=== PATIENT | female | born 1950 | race Caucasian/White ===

== ENCOUNTER 2021-05-23 05:39 | Day surgery (SDC) | payer MEDICARE, OTHER ==
[2021-05-16 14:31] LABS: BASOPHILS % (AUTO) 0.5 % (0-1); EOSINOPHILS # (AUTO) 0.1 X10'3 (0-0.9); EOSINOPHILS % (AUTO) 1.7 % (0-6); LYMPHOCYTES % (AUTO) 27.7 % (21-51); MEAN CORPUSCULAR HEMOGLOBIN 33.4 PG (27.0-31.0); MEAN CORPUSCULAR VOLUME 98.3 FL (78-98); MEAN PLATELET VOLUME 7.5 FL (7.4-10.4); MONOCYTES # (AUTO) 0.7 X10'3 (0-0.9); MONOCYTES % (AUTO) 10.1 % (2-12); NEUTROPHILS # (AUTO) 4.4 X10'3 (1.8-7.7); PRE OP HEMATOCRIT 41.8 % (35.0-45.0); PRE OP HEMOGLOBIN 14.2 g/dL (12.0-16.0); PRE OP PLATELET COUNT 299 X10'3 (140-440); RED BLOOD COUNT 4.25 X10'6 (4.20-5.60); RED CELL DISTRIBUTION WIDTH 12.8 % (11.5-14.5)
[2021-05-16 14:48] LABS: ALBUMIN 3.9 G/DL (3.4-5.0); ALKALINE PHOSPHATASE 109 IU/L (46-116); BLOOD UREA NITROGEN 20 MG/DL (7-18); CALCIUM 10.5 MG/DL (8.5-10.1); CHLORIDE 103 MMOL/L (99-107); CREATININE 0.87 MG/DL (0.40-0.90); PRE OP ALT 29 U/L (30-65); PRE OP ANION GAP 7 (8-16); PRE OP AST 18 U/L (10-37); PRE OP BILIRUB, TOTAL 0.5 MG/DL (0.0-1.0); PRE OP GLUCOSE 91 MG/DL (70-104); PRE OP POTASSIUM 4.5 MMOL/L (3.4-5.1); PRE OP SODIUM 141 MMOL/L (135-145); TOTAL CARBON DIOXIDE 31.1 MMOL/L (24-32); TOTAL PROTEIN 7.8 G/DL (6.4-8.2); eGFR 64 ML/MIN
[~2021-05-23] VITALS: Ht 160 cm; Wt 64.0 kg
[2021-05-23] VITALS (8 sets, daily range): BP systolic 109–130; BP diastolic 55–91
[~2021-05-23 05:39] MED LIST: BUPR300T53 PO; CALCIUM; FISH OIL; MULT-1085 PO; OMEP-50 PO; VITAMIN E; VORT20TA PO; ceFOXitin 2GM-NS 100mL ADDvant 100 ML IV ONE; famotidine 20mg tablet PO ONE; ringers solution, lacted 1,000 ML IV SCH
[2021-05-23] MEDS ORDERED: INDOCYANINE GREEN 25 MG/10 ML VIAL IV ONE (06:35)
[2021-05-23] MEDS ORDERED: BUPIVAcaine/PF 2.5mg/ml (0.25%) 10ml vial ONE (07:00)
[2021-05-23] MEDS ORDERED: LIDOcaine 1% 30ml preserv. free vial ONE (07:00)
[2021-05-23] MEDS ORDERED: sevoflurane 250ml liquid IH ONE (07:44)
[2021-05-23] MEDS ORDERED: morphine 2 MG/ML inj. syringe IV PRN (07:45)
[2021-05-23] MEDS ORDERED: hydrALAZINE 20mg/ml inj. IV PRN (07:45)
[2021-05-23] MEDS ORDERED: proCHLORperazine 10 MG/2 ml inj IV PRN (07:45)
[2021-05-23] MEDS ORDERED: HYDROmorphone/PF 0.2 MG/ML SYRINGE IV PRN ×2 (07:45)
[2021-05-23] MEDS ORDERED: labetalol 20mg/4ml (5mg/ml) syringe IV PRN (07:45)
[2021-05-23] MEDS ORDERED: acetaminophen 1,000mg/100ml IV 100 ML IV PRN (07:45)
[2021-05-23] MEDS ORDERED: meperidine/PF 25mg/ml syringe IV PRN (07:45)
[2021-05-23] MEDS ORDERED: ondansetron/PF 4mg/2ml inj IV PRN (07:45)
[2021-05-23] MEDS ORDERED: morphine 4 MG/ML inj SYRINge IV PRN (07:45)
[2021-05-23] MEDS ORDERED: ringers solution, lacted 1,000 ML IV SCH (07:45)
[2021-05-23] MEDS ORDERED: fentaNYL /PF 50mcg/ml 5ml ampule ONE (07:49)
[2021-05-23] MEDS ORDERED: midazolam 1 mg/ML 2ml injection ONE (07:49)
[2021-05-23] MEDS ORDERED: rocuronium 10mg/ml inj IV ONE (08:12)
[2021-05-23] MEDS ORDERED: ondansetron/PF 4mg/2ml inj ONE (08:12)
[2021-05-23] MEDS ORDERED: propofol inj 20 ML IV ONE (08:12)
[2021-05-23] MEDS ORDERED: LIDOcaine 2% (20mg/ml) 5ml vial ONE (08:12)
[2021-05-23] MEDS ORDERED: dexamethasone sod phosphate 4mg/ml inj. ONE (08:12)
[2021-05-23] MEDS ORDERED: glycopyrrolate 0.2mg/ml inj ONE (08:39)
[2021-05-23] MEDS ORDERED: neostigmine methylsulfate 1 MG/ML 10ml vial ONE (08:39)
--- NOTE | 2021-05-23 09:05 | NUR ---
ADMITTED TO PACU FROM OR ACCOMPANIED BY ANESTHESIA. INTIAL PHYSICAL ASSESSMENT DONE AND RECORDED. REPORT RECEIVED FROM ANESTHESIA.
[2021-05-23] MEDS ORDERED: HYDROcodone/acetaminophen 5mg/325mg tablet PO PRN (09:15)
--- NOTE | 2021-05-23 10:05 | NUR ---
DISCHARGE CRITERIA MET, DISCHARGE INSTRUCTIONS GIVEN, DEMONSTRATES VERBAL UNDERSTANDING. DISCHARGED HOME IN GOOD CONDITION.
== END 2021-05-23 10:05 | disposition home or self-care (01) ==
LOC: PAS 05:39
PROVIDERS: ATTEND Surgery
DX: K81.1 Chronic cholecystitis (principal); G47.33 Obstructive sleep apnea (adult) (pediatric); F41.9 Anxiety disorder, unspecified; F32.9 Major depressive disorder, single episode, unspecified; K21.9 Gastro-esophageal reflux disease without esophagitis; Z98.890 Other specified postprocedural states; Z87.891 Personal history of nicotine dependence; Z88.2 Allergy status to sulfonamides; Z91.013 Allergy to seafood; Z79.899 Other long term (current) drug therapy; Z20.822 Contact with and (suspected) exposure to COVID-19; Z81.8 Family history of other mental and behavioral disorders; Z83.6 Family history of other diseases of the respiratory system
CPT/HCPCS: 36415; 47563; 71046; 80053; 82948; 85025; 93005; J0694; J1100; J2001; J2250; J2405; J2704; J2710; J3010; J3490; J7120; U0003; Z7506; Z7508; Z7512; 88304; A4215; A4618; A7000

== ENCOUNTER 2023-03-15 12:43 | Emergency (ER) | payer MEDICARE, OTHER ==
[~2023-03-15] VITALS: Ht 160 cm; Wt 65.9 kg
[~2023-03-15 12:43] MED LIST changes: -OMEP-50 PO; +OMEP20CA16 PO; -ceFOXitin 2GM-NS 100mL ADDvant 100 ML IV ONE; -famotidine 20mg tablet PO ONE; -ringers solution, lacted 1,000 ML IV SCH
[2023-03-15 13:10] LABS: BASOPHILS % (AUTO) 0.4 % (0-1); EOSINOPHILS # (AUTO) 0.1 X10'3 (0-0.9); EOSINOPHILS % (AUTO) 1.5 % (0-6); HEMATOCRIT 39.3 % (35.0-45.0); HEMOGLOBIN 13.5 g/dl (12.0-16.0); LYMPHOCYTES # (AUTO) 2.5 X10'3 (1.1-4.8); LYMPHOCYTES % (AUTO) 33.3 % (21-51); MEAN CORPUSCULAR HEMOGLOBIN 33.8 PG (27.0-31.0); MEAN CORPUSCULAR HGB CONC 34.4 g/dL (33.0-36.5); MEAN CORPUSCULAR VOLUME 98.3 FL (78-98); MEAN PLATELET VOLUME 7.2 FL (7.4-10.4); MONOCYTES # (AUTO) 0.9 X10'3 (0-0.9); MONOCYTES % (AUTO) 11.9 % (2-12); NEUTROPHILS % (AUTO) 52.9 % (42-75); PLATELET COUNT 315 X10'3 (140-440); RED BLOOD COUNT 3.99 X10'6 (4.20-5.60); RED CELL DISTRIBUTION WIDTH 12.9 % (11.5-14.5); WHITE BLOOD COUNT 7.6 X10'3 (4.5-11.0)
[2023-03-15 13:20] LABS: ALANINE AMINOTRANSFERASE 32 U/L (12-78); ALBUMIN 3.8 G/DL (3.4-5.0); ALBUMIN/GLOBULIN RATIO 1.1 (1.1-1.5); ALKALINE PHOSPHATASE 101 IU/L (46-116); ANION GAP 9 (8-16); ASPARTATE AMINO TRANSFERASE 20 U/L (10-37); BILIRUBIN,TOTAL 0.5 MG/DL (0.1-1.0); BLOOD UREA NITROGEN 13 MG/DL (7-18); CALCIUM 9.9 MG/DL (8.5-10.1); CHLORIDE 103 MMOL/L (99-107); GLUCOSE 121 MG/DL (70-104); POTASSIUM 4.1 MMOL/L (3.5-5.1); SODIUM 137 MMOL/L (135-145); TOTAL CARBON DIOXIDE 25.4 MMOL/L (24-32); TOTAL PROTEIN 7.3 G/DL (6.4-8.2); eGFR 54 ML/MIN
[2023-03-15 13:26] LABS: MAGNESIUM 2.2 MG/DL (1.5-2.4)
[2023-03-15] MEDS ORDERED: pantoprazole 40 MG vial IV ONE (14:40)
[2023-03-15] MEDS ORDERED: pantoprazole 40 MG/NS 100ML add-vantage BAG IV ONE (15:45)
[2023-03-15 15:59] VITALS: BP 121/69
[2023-03-15] MEDS ORDERED: PANT-47 PO (17:16)
== END 2023-03-15 17:35 | disposition home or self-care (01) ==
LOC: ER 12:44
DX: R07.89 Other chest pain (principal); I10 Essential (primary) hypertension; R20.8 Other disturbances of skin sensation; E78.00 Pure hypercholesterolemia, unspecified; K21.9 Gastro-esophageal reflux disease without esophagitis; Z91.013 Allergy to seafood; Z88.2 Allergy status to sulfonamides; Z90.49 Acquired absence of other specified parts of digestive tract
CPT/HCPCS: 36415; 71045; 80053; 83735; 83880; 84145; 84484; 85025; 93005; 96374; 99285; C9113